=== PATIENT | male | born 1960 | race Hispanic/Latino ===

== ENCOUNTER 2018-02-07 06:15 | Day surgery (SDC) | payer OTHER ==
[2018-02-04 11:50] VITALS: BP 123/79
[2018-02-04 12:04] LABS: BASOPHILS % (AUTO) 0.7 % (0.0-5.0); EOSINOPHILS % (AUTO) 1.6 % (0.0-8.0); HEMATOCRIT 48.8 % (42-54); LYMPHOCYTES % (AUTO) 25.7 % (21.0-51.0); MEAN CORPUSCULAR HEMOGLOBIN 29.4 pg (27.0-33.0); MEAN CORPUSCULAR HGB CONC 33.5 g/dL (32.0-36.0); MEAN CORPUSCULAR VOLUME 87.9 fL (79-99); MONOCYTES % (AUTO) 7.6 % (3.0-13.0); NEUTROPHILS % (AUTO) 64.4 % (40.0-77.0); PLATELET COUNT (AUTO) 191 K/uL (130-400); RED BLOOD CELL COUNT(AUTO) 5.56 MIL/uL (4.50-6.20); RED CELL DISTRIBUTION WIDTH 14.6 % (11.0-15.5); WHITE BLOOD COUNT (AUTO) 8.8 K/uL (4.8-10.8)
[2018-02-04 12:14] LABS: INR 1.15 (0.85-1.15)
[2018-02-04 12:21] LABS: ALBUMIN 3.4 g/dL (3.5-5.0); CREATININE 1.1 mg/dL (0.5-1.5); POTASSIUM 4.2 mmol/L (3.5-5.1); TOTAL PROTEIN, SERUM 6.2 g/dL (6.0-8.3)
[~2018-02-07] VITALS: Ht 161.3 cm; Wt 121.0 kg
[2018-02-07] VITALS (16 sets, daily range): BP systolic 92–129; BP diastolic 58–79
[~2018-02-07 06:15] MED LIST: ASPI-1181 PO; CEFAZOLIN SODIUM 1 GM VIAL IVP SCH; DOCU100C33 PO; METH500T6 PO; PANT40TA25 PO
[2018-02-07] MEDS ORDERED: LACTATED RINGERS 1000ML 1,000 ML IV ONE (06:43)
[2018-02-07] MEDS: CEFAZOLIN SODIUM 1 GM VIAL ONE ×2 (07:11→10:42)
[2018-02-07] MEDS ORDERED: LIDOCAINE PF 2% 5ML ABBOJECT ONE (10:24)
[2018-02-07] MEDS ORDERED: PROPOFOL 10 MG/ML 20ML VIAL IV ONE (10:24)
[2018-02-07] MEDS ORDERED: SUCCINYLCHOLINE CHLORIDE 20 MG/ML 10 ML VIAL ONE (10:24)
[2018-02-07] MEDS ORDERED: ROCURONIUM BROMIDE 10MG/1ML 5ML VL ONE (10:24)
[2018-02-07] MEDS ORDERED: MIDAZOLAM HCL 1 MG/ML 2ML VIAL ONE (10:25)
[2018-02-07] MEDS ORDERED: FENTANYL CITRATE PF 50 MCG/1 ML 2ML VIAL ONE ×2 (10:25→10:55)
[2018-02-07] MEDS ORDERED: BUPIVACAINE/PF 0.25% 30ML VIAL IJ ONE (10:28)
[2018-02-07] MEDS ORDERED: NEOMY SULF/POLYMYXIN B SULFATE 1 ML AMPUL IR ONE (10:29)
[2018-02-07] MEDS ORDERED: BACITRACIN 28.4 GM OINT TP ONE (11:03)
[2018-02-07] MEDS ORDERED: MEPERIDINE-PF 25 MG/ML SYG ONE (11:42)
== END 2018-02-07 13:50 | disposition home or self-care (01) ==
LOC: DAH 06:15
PROVIDERS: ATTEND Urology
DX: L72.8 Other follicular cysts of the skin and subcutaneous tissue (principal); N44.2 Benign cyst of testis; E78.5 Hyperlipidemia, unspecified; E66.9 Obesity, unspecified; Z98.890 Other specified postprocedural states; Z98.84 Bariatric surgery status; K21.9 Gastro-esophageal reflux disease without esophagitis; I10 Essential (primary) hypertension; Z79.899 Other long term (current) drug therapy; R00.1 Bradycardia, unspecified
CPT/HCPCS: 36415; 54512; 80053; 85025; 85610; 88305; 93005; A4218; A4452; A4600; A4606; A4930; J0330; J0690; J2001; J2175; J2250; J2704; J3010 ×2; J3490 ×2; J7120

== ENCOUNTER → 2019-01-24 | Outpatient (CLI) | payer OTHER ==
[~2019-01-24] MED LIST changes: -CEFAZOLIN SODIUM 1 GM VIAL IVP SCH
== END | disposition home or self-care (01) ==
LOC: RAH 07:42
PROVIDERS: ATTEND Internal Medicine Gastroenterology
DX: K80.20 Calculus of gallbladder without cholecystitis without obstruction (principal); K76.0 Fatty (change of) liver, not elsewhere classified
CPT/HCPCS: 76700

== ENCOUNTER → 2019-02-14 | Outpatient (CLI) | payer OTHER | END | disposition home or self-care (01) | LOC: RAH 09:15 | PROVIDERS: ATTEND Internal Medicine | DX: K76.0 Fatty (change of) liver, not elsewhere classified (principal); N40.0 Benign prostatic hyperplasia without lower urinary tract symptoms | CPT/HCPCS: 76700; 76857 ==

== ENCOUNTER → 2019-03-13 | Outpatient (CLI) | payer OTHER | END | disposition home or self-care (01) | LOC: RAH 10:40 | PROVIDERS: ATTEND Internal Medicine Gastroenterology | DX: K29.00 Acute gastritis without bleeding (principal) | CPT/HCPCS: 78264; A9541 ==

== ENCOUNTER → 2020-08-13 | Outpatient (CLI) | payer OTHER ==
[~2020-08-13] MED LIST changes: -ASPI-1181 PO; +ASPI-1443 PO; -PANT40TA25 PO; +PANT40TA54 PO
[2020-08-13 15:32] LABS: CREATININE 1.1 mg/dL (0.5-1.5)
== END | disposition home or self-care (01) ==
LOC: LAB 14:13
PROVIDERS: ATTEND Plastic Surgery
DX: M79.3 Panniculitis, unspecified (principal)
CPT/HCPCS: 36415; 82565; 84520

== ENCOUNTER → 2020-08-17 | Outpatient (CLI) | payer OTHER ==
[~2020-08-17] MED LIST changes: +IOHEXOL-350 75 ML VIAL IV ONE
== END | disposition home or self-care (01) ==
LOC: RAH 08:31
PROVIDERS: ATTEND Plastic Surgery
DX: K44.9 Diaphragmatic hernia without obstruction or gangrene (principal); K42.9 Umbilical hernia without obstruction or gangrene; M47.817 Spondylosis without myelopathy or radiculopathy, lumbosacral region; K43.9 Ventral hernia without obstruction or gangrene
CPT/HCPCS: 74178; Q9967

== ENCOUNTER → 2022-07-11 | Outpatient (CLI) | payer OTHER ==
[~2022-07-11] MED LIST changes: -IOHEXOL-350 75 ML VIAL IV ONE; +METH-811 PO; -METH500T6 PO
== END | disposition home or self-care (01) ==
LOC: RAH 12:26
PROVIDERS: ATTEND Student in an Organized Health Care Education/Training Program
DX: M71.21 Synovial cyst of popliteal space [Baker], right knee (principal); I73.9 Peripheral vascular disease, unspecified; M71.22 Synovial cyst of popliteal space [Baker], left knee
CPT/HCPCS: 93925; 93970

== ENCOUNTER 2024-10-22 07:40 | Day surgery (SDC) | payer OTHER ==
[2024-10-22] VITALS (10 sets, daily range): BP systolic 108–135; BP diastolic 74–83; PULSE 60–85; RESP 14–20; TEMP 97.2–99.3
[~2024-10-22] VITALS: Ht 162.6 cm; Wt 135.2 kg
[~2024-10-22 07:40] MED LIST changes: +ACETAMINOPHEN; -DOCU100C33 PO; +IBUP-2077 PO; -METH-811 PO; +TYLENOL ARTHRITIS PO
[2024-10-22] MEDS: 0.9%NACL 1000ML 1,000 ML IV ONE (10:54)
[2024-10-22] MEDS ORDERED: LIDOCAINE HCL 400MG/20ML VIAL ONE (11:40)
[2024-10-22] MEDS ORDERED: proPOFol 10 MG/ML 20ML VIAL IV ONE (11:40)
== END 2024-10-22 13:05 | disposition home or self-care (01) ==
LOC: DAH 07:40 → ENDO 07:40
PROVIDERS: ATTEND Internal Medicine Gastroenterology
DX: K22.70 Barrett's esophagus without dysplasia (principal); K29.50 Unspecified chronic gastritis without bleeding; K21.00 Gastro-esophageal reflux disease with esophagitis, without bleeding; K44.9 Diaphragmatic hernia without obstruction or gangrene; F41.9 Anxiety disorder, unspecified; E66.01 Morbid (severe) obesity due to excess calories; K57.30 Diverticulosis of large intestine without perforation or abscess without bleeding; K64.0 First degree hemorrhoids; K76.0 Fatty (change of) liver, not elsewhere classified; I12.9 Hypertensive chronic kidney disease with stage 1 through stage 4 chronic kidney disease, or unspecified chronic kidney disease; N18.9 Chronic kidney disease, unspecified; G47.33 Obstructive sleep apnea (adult) (pediatric); Z86.0100 Personal history of colon polyps, unspecified; Z98.84 Bariatric surgery status; Z98.890 Other specified postprocedural states; Z79.82 Long term (current) use of aspirin; Z79.899 Other long term (current) drug therapy
CPT/HCPCS: 43239; J3490; J7030; J2704; A4620; A4215 ×2; A4223; A4222; A4221; A4663; A4606

== ENCOUNTER 2024-12-23 06:29 | Observation (INO) | payer OTHER ==
[2024-12-18 13:08] VITALS: BP 156/88; PULSE 69; RESP 18; TEMP 98.2
[2024-12-18 13:08] LABS: BASOPHILS # (AUTO) 0.04 K/uL (0.00-0.20); BASOPHILS % (AUTO) 0.5 % (0.0-5.0); EOSINOPHILS # (AUTO) 0.12 K/uL (0.00-0.70); EOSINOPHILS % (AUTO) 1.5 % (0.0-8.0); HEMATOCRIT 48.5 % (42-54); IMMATURE GRANULOCYTE ABSOLUTE 0.03 K/uL (0-1); LYMPHOCYTES # (AUTO) 2.4 K/uL (1.0-4.8); LYMPHOCYTES % (AUTO) 29.9 % (21.0-51.0); MEAN CORPUSCULAR HEMOGLOBIN 29.5 pg (27.0-33.0); MEAN CORPUSCULAR HGB CONC 32.6 g/dL (32.0-36.0); MEAN CORPUSCULAR VOLUME 90.7 fL (79-99); MONOCYTES # (AUTO) 0.8 K/uL (0.1-1.0); MONOCYTES % (AUTO) 9.2 % (3.0-13.0); NEUTROPHILS # (AUTO) 4.8 K/uL (1.8-7.7); NEUTROPHILS % (AUTO) 58.5 % (40.0-77.0); PLATELET COUNT (AUTO) 210 K/uL (130-400); RED BLOOD CELL COUNT(AUTO) 5.35 MIL/uL (4.50-6.20); RED CELL DISTRIBUTION WIDTH 13.7 % (11.0-15.5); WHITE BLOOD COUNT (AUTO) 8.2 K/uL (4.8-10.8)
[2024-12-18 13:16] LABS: APPEARANCE,URINE CLEAR (CLEAR); BILIRUBIN,URINE NEGATIVE (NEGATIVE); COLOR,URINE YELLOW (YELLOW); GLUCOSE, URINE (UA) NEGATIVE (NEGATIVE); KETONES,URINE NEGATIVE (NEGATIVE); LEUKOCYTE ESTERASE ,URINE NEGATIVE Leu/uL (NEGATIVE); NITRATE,URINE NEGATIVE (NEGATIVE); OCCULT BLOOD,URINE NEGATIVE (NEGATIVE); PH,URINE 5.5 (5.0-8.0); PROTEIN,URINE NEGATIVE (NEGATIVE)
[2024-12-18 13:21] LABS: CREATININE 1.2 mg/dL (0.5-1.3); POTASSIUM 4.3 mmol/L (3.5-5.1)
[2024-12-18 13:25] LABS: ADD UA MICROSCOPIC NO; INR 1.24 (0.85-1.15); PROTHROMBIN TIME 12.9 SEC (9.6-11.6)
[2024-12-18 13:26] LABS: PARTIAL THROMBOPLASTIN TIME 27.3 SEC (26.3-35.5)
--- NOTE | 2024-12-18 13:35 | NUR ---
RE: IS INITIAL IS INITIAL TEACHING COMPLETED BY RT SKYE DURING PREOP
[2024-12-23] VITALS (26 sets, daily range): BP systolic 110–154; BP diastolic 65–89; PULSE 65–89; RESP 14–18; TEMP 97.5–98.6; O2SAT 97–98
[~2024-12-23] VITALS: Ht 162.6 cm; Wt 129.7 kg
[~2024-12-23 06:29] MED LIST changes: -ACETAMINOPHEN; +ATOR40TA69 PO; -IBUP-2077 PO; +LOSA25TA41 PO; +MILK175T2 PO; -TYLENOL ARTHRITIS PO
[2024-12-23] MEDS: LACTATED RINGERS 1000ML 1,000 ML IV ONE (07:21)
[2024-12-23] MEDS: ceFAZolin SODIUM 1 GM VIAL ONE ×2 (07:22→13:01)
[2024-12-23] MEDS: ceFAZolin SODIUM 2 GM VIAL ONE (07:22)
[2024-12-23] MEDS ORDERED: SUCCINYLCHOLINE CHLORIDE 20 MG/ML 10 ML VIAL ONE (10:40)
[2024-12-23] MEDS ORDERED: dexaMETHasone SOD PHOSPHATE 10MG/ML 1ML VIAL ONE (10:40)
[2024-12-23] MEDS ORDERED: LIDOCAINE PF 100MG/5ML (2%) SYRINGE 5ML ONE (10:40)
[2024-12-23] MEDS ORDERED: ondanSETRON 4MG INJ ONE (10:41)
[2024-12-23] MEDS ORDERED: rocuRONium bROMide 10MG/1ML 5ML VL ONE ×2 (10:41→12:12)
[2024-12-23] MEDS ORDERED: MIDAZOLAM HCL 1 MG/ML 2ML VIAL ONE (10:41)
[2024-12-23] MEDS ORDERED: FENTanyl CITRate PF 50 MCG/1 ML 2ML VIAL ONE (10:41)
[2024-12-23] MEDS ORDERED: proPOFol 10 MG/ML 20ML VIAL IV ONE (10:41)
[2024-12-23] MEDS ORDERED: ROPivacaine 0.5% 5MG/ML 30ML ONE (10:50)
[2024-12-23] MEDS ORDERED: TRANEXAMIC ACID 1000MG/10ML ONE (11:37)
[2024-12-23] MEDS ORDERED: phenylEPHRINE HCL 10 MG/ML 1ML VIAL IV ONE (11:55)
[2024-12-23] MEDS ORDERED: GLYCOPYRROLATE 0.2 MG/ML 5 ML VIAL ONE (12:05)
[2024-12-23] MEDS: VANCOMYCIN 500MG+NS 100ML 100 ML IV ONE (13:02)
--- NOTE | 2024-12-23 13:44 | OP ---
Operative Note: DATE OF PROCEDURE: 12/23/24 SURGEON: FRANCIE BAILON MD NETWORKING TECHNOLOGY INSTRUCTOR: [Lisa Crowe CFA] ANESTHESIA: [General anesthesia plus regional block] ANESTHESIOLOGIST/ROVING SIZER: [Tom Corea CRNA] PREOPERATIVE DIAGNOSIS: [Left knee osteoarthritis] POSTOPERATIVE DIAGNOSIS: [Left knee osteoarthritis] IMPLANTS: [Biomet vanguard. Femur size 65 left PS. Tibia size 71 fixed cruciate. Patella size 34 x 9, asymmetric. Tibial liner size 12 x 70 1/75 PS] PROCEDURE: [Left total knee arthroplasty] ESTIMATED BLOOD LOSS: [250 mL] INDICATIONS: [64-year-old male with history of pain to the left knee secondary to osteoarthritis that has no longer responded to conservative treatment the patient has severe damage to the joint and he has been admitted for a left total knee arthroplasty. Procedure understood, risks, benefits and possible complications and agreed to sign the consent form.] DESCRIPTION OF PROCEDURE: [After adequate general anesthesia was achieved and regional block obtained the left lower extremity was prepped and draped in the usual manner previous placement of the tourniquet in the proximal thigh. The extremity was then elevated and exsanguinated with an Esmarch bandage and the tourniquet inflated to 300 mmHg the Esmarch band been then removed. With the knee in flexion a longitudinal incision was then made in the anterior aspect through the skin followed by dissection of the subcutaneous tissue. A bone infusion needle was then inserted just medial to the tibial tuberosity into the metaphysis. A solution of 500 mg of vancomycin mixed with 50 mL of normal saline solution were then injected through this needle into the metaphysis. The needle was then removed and a paramedian approach was then made with the Bovie cautery cutting through the quadriceps tendon, medial patellar retinaculum and patellar tendon retinaculum. The retropatellar tendon fat was then excised and the soft tissue elements of the tibia were elevated subperiosteally and retractors were applied medially and laterally . The anterior and posterior cruciate ligaments were resected. With the use of a drill a starting hole was made in the distal femur entering the intramedullary canal and then after removal of the drill an intramedullary guide was inserted with a 5 degree valgus block that touched the distal femur and to this the distal femoral cutting guide was then applied anteriorly and was secured to the distal femur with the use of pins. The intramedullary guide was then removed and with the use of the oscillating saw we proceeded to resect the distal femur removing the fragments and the guide. The femoral sizer was then applied distally and drill holes were made removing the sizer and the 4-in-1 cutting block was then inserted and the anterior, posterior and chamfer cuts were made removing the fragments and the block. The posterior cruciate ligament retractor was then inserted posterior to the tibia and this was brought forward proceeding then to apply the external tibial alignment guide and secured the proximal cutting guide to the tibia with the use of pins. With the use of the oscillating saw the proximal cut to the tibia tibia was made. The bone fragment was removed and the trial tibia plate was chosen. At this point the menisci were removed sharply and with the use of the curved osteotome the posterior osteophytes of the femur were removed. The PS cutting guide was then inserted and the intercondylar cut was made removing the fragment and the guide. The trial components were then inserted at the femur and tibia with a trial tibial liner bringing the knee into extension noticing that the patient had a very stable knee in flexion, extension and with valgus and varus stress. The knee was maintained in extension and the patella was then addressed proceeding to measure its thickness and then with the use of the oscillating saw we removed 9 mm from the articular surface and restored the height with application of a trial component after 3 peg holes were made. The patellofemoral ligament was removed and then the patellofemoral tracking was checked noticing to be normal. At this moment all the components were removed, the tibia after the metaphyseal defect was created and while cement was being mixed on the back table we proceeded to irrigate the joint with antibiotic solution and then cover the entry to the femoral canal with a bone plug. Once the cement was ready we proceeded to apply it first to the tibia surface inserting the final component and then to the femoral surface and inserted the final component removing the excess cement and then applying a trial liner bringing the knee into extension for compression. Then we proceeded to irrigate the patella surface and dried it applying then bone cement and the final patellar component was inserted and was secured with application of a clamp. The joint was irrigated with a warm diluted Betadine solution while the cement dried followed by irrigation with antibiotic solution. The trial liner was removed as well as the patellar clamp and we proceeded then to irrigate the posterior aspect of the joint to remove all the remaining debris and the final tibial liner was inserted and locked against the tibia . The range of motion was checked and noticed to be adequate with full extension and flexion, no laxity in valgus or varus stress and with adequate patellofemoral tracking. The patient had no anterior or posterior drawer. After further irrigation the tourniquet was deflated and hemostasis was obtained with the cautery. At this time the wound was then closed with approximation of the quadriceps tendon, patellar retinaculum and patellar tendon retinaculum with #1 Vicryl close stitches alternating with #1 Ethibond stitches, this was followed by closure of the subcutaneous tissue with 2-0 Monocryl inverted stitches and the skin was closed with 3-0 Monocryl subcuticularly. The wound was covered with a suction dressing followed by application of an Harman bandage for compression and the drapes were then removed transferring the patient to the hospital bed and taken to recovery room for follow-up by anesthesia. There were no complications during the procedure.] FRANCIE BAILON MD Dec 23, 2024 13:44
[2024-12-23] MEDS ORDERED: FERROUS FUMARATE 324 MG TABLET PO PRN (14:00)
[2024-12-23] MEDS ORDERED: PoTASSium chl 10% ELIXIR 20MEQ 20 MEQ/15 ML UDCUP PO PRN (14:00)
[2024-12-23] MEDS ORDERED: CALCIUM CARB 500MG PO PRN (14:00)
[2024-12-23] MEDS ORDERED: DiphenhydrAMINE HCL 50 MG/ML VIAL IVP PRN (14:00)
[2024-12-23] MEDS ORDERED: PoTASSium chloRIDE 20MEQ/100ML 100 ML IV PRN (14:00)
[2024-12-23] MEDS ORDERED: ondanSETRON 4MG INJ IVP PRN (14:00)
[2024-12-23] MEDS ORDERED: PoTASSium chloRIDE 20MEQ ER 20 MEQ ERTAB PO PRN (14:00)
[2024-12-23] MEDS: TRANEXAMIC ACID 1000MG/10ML ONE (14:55)
[2024-12-23] MEDS: FENTanyl CITRate PF 50 MCG/1 ML 2ML VIAL ONE (14:55)
--- NOTE | 2024-12-23 15:30 | NUR ---
RECEIVED REPORT FROM KEIRA CHAPA. PATIENT ARRIVED TO UNIT NO SIGNS OF SYMPTOMS OF DISTRESS NOTED. PATIENT STATES HE HAVING PAIN AT THIS TIME. PATIENT IS RESTING COMFORTABLY WITH FAMILY PRESENT IN THE ROOM. POST OP VITALS STARTED.
[2024-12-23] MEDS: ketOROlac 15MG/ML VIAL (15MG/ML) IV PRN (15:49)
[2024-12-23] MEDS: CeleCOXib 200 MG CAP PO SCH (20:10)
[2024-12-23] MEDS: ceFAZolin SODIUM 2 GM VIAL IVP SCH (20:11)
[2024-12-23] MEDS: acetaMINOPHEN 500 MG TABLET PO SCH (22:00)
[2024-12-24] MEDS: 0.9%NACL 1000ML 1,000 ML IV SCH (02:15)
[2024-12-24 04:00] VITALS: BP 108/51; PULSE 67; RESP 18; TEMP 98.6
[2024-12-24 04:40] LABS: MEAN CORPUSCULAR HEMOGLOBIN 29.5 pg (27.0-33.0); MEAN CORPUSCULAR HGB CONC 31.9 g/dL (32.0-36.0); MEAN CORPUSCULAR VOLUME 92.5 fL (79-99); RED BLOOD CELL COUNT(AUTO) 4.54 MIL/uL (4.50-6.20); RED CELL DISTRIBUTION WIDTH 13.8 % (11.0-15.5); WHITE BLOOD COUNT (AUTO) 10.4 K/uL (4.8-10.8)
[2024-12-24 04:51] LABS: POTASSIUM 3.8 mmol/L (3.5-5.1)
--- NOTE | 2024-12-24 06:25 | NUR ---
PT ASSISTED TO BEDSIDE CHAIR WITH USE OF WALKER. EDNA DRESSING REMOVED, INCISION CLEAN/DRY WITH MYCHAL DRESSING. PT VOICING DISCOMFORT OXYCODONE 5 MG PO PRN GIVEN AT THIS TIME. ENCOURAGED TO USE CALL LIGHT FOR ASSISTANCE, CALL PALMER WITHIN REACH.
[2024-12-24] MEDS: OXYcodONE HCL 5 MG TAB PO PRN (06:31)
[2024-12-24 08:04] VITALS: BP 128/77; PULSE 57; RESP 18; TEMP 98.2
[2024-12-24] MEDS: atorVAStatin 40 MG TABLET PO SCH (09:05)
[2024-12-24] MEDS: ASPIRIN 81 MG EC TAB PO SCH (09:05)
[2024-12-24] MEDS: LoSARTan 25 MG TABLET PO SCH (09:05)
[2024-12-24] MEDS: PANTOPrazole 40 MG TAB DR PO SCH (09:06)
[2024-12-24] MEDS: tamSULOsin HCL 0.4 MG CAP.ER.24H PO SCH (09:06)
[2024-12-24] MEDS: polyETHYLene GLYCol 3350 17 GM POWD.PACK PO SCH (09:06)
[2024-12-24] MEDS: APIXaban 2.5 MG TABLET PO SCH (09:06)
--- NOTE | 2024-12-24 10:42 | PN ---
Ortho postop day one. (Patient seen at 7:45 a.m. this morning) . Patient is awake alert and oriented seated at the bedside resting comfortably with his operative extremity resting on a footstool. He has been alternating extension and flexion. The Harman bandage his already been removed and the picco dressing is intact flushing green. The gastrocnemius a soft nontender. Negative Homans. Vital signs have remained stable. Afebrile. Laboratory results reviewed. Noted to have a slight drop in hematocrit but hemoglobin is within normal limits. Voiding on his own. Operative findings discussed with the patient. And forced incentive spirometry. Ice is present to the operative site. He ambulated yesterday within the confines of his room and is pending further physical therapy this morning. We discussed discharge disposition and patient would like to be considered for skilled nurse facility. We will defer this to case management. Assessment: Status post left total knee arthroplasty. Plan: Continue with Dr. Lezama TKA protocol and discharge planning Vitals/Labs Vital Signs Date Time Temp Pulse Resp B/P (MAP) Pulse Ox O2 Delivery O2 Flow Rate FiO2 12/24/24 08:04 98.2 57 18 128/77 94 Room Air 12/24/24 04:00 2.0 24 Laboratory Tests 12/24/24 04:19 Medications Current Medications Cefazolin Sodium 1 gm STK-MED ONCE .ROUTE Last administered on 12/23/24at 11:45; Start 12/23/24 at 06:58; Stop 12/23/24 at 06:59; Status DC Cefazolin Sodium 2 gm STK-MED ONCE .ROUTE Last administered on 12/23/24 11:45; Start 12/23/24 at 06:59; Stop 12/23/24 at 06:59; Status DC Lactated Ringer's 1,000 ml @ As Directed STK-MED ONCE IV Last administered on 12/23/24 07:21; Start 12/23/24 at 06:59; Stop 12/23/24 at 06:59; Status DC Cefazolin Sodium 1 gm STK-MED ONCE .ROUTE Last administered on 12/23/24 13:01; Start 12/23/24 at 07:17; Stop 12/23/24 at 07:18; Status DC Vancomycin HCl 100 ml @ As Directed STK-MED ONCE IV Last administered on 4/29/25at 13:02; Start 12/23/24 at 07:18; Stop 12/23/24 at 07:18; Status DC Lidocaine HCl 100 mg STK-MED ONCE .ROUTE; Start 12/23/24 at 10:40; Stop 12/23/24 at 10:40; Status DC Succinylcholine Chloride 200 mg STK-MED ONCE .ROUTE; Start 12/23/24 at 10:40; Stop 12/23/24 at 10:41; Status DC Dexamethasone Sodium Phosphate 10 mg STK-MED ONCE .ROUTE; Start 12/23/24 at 10:40; Stop 12/23/24 at 10:41; Status DC Midazolam HCl 2 mg STK-MED ONCE .ROUTE; Start 12/23/24 at 10:41; Stop 12/23/24 at 10:41; Status DC Propofol 200 mg STK-MED ONCE IV; Start 12/23/24 at 10:41; Stop 12/23/24 at 10:41; Status DC Ondansetron HCl 4 mg STK-MED ONCE .ROUTE; Start 12/23/24 at 10:41; Stop 12/23/24 at 10:41; Status DC Rocuronium [place] 50 mg STK-MED ONCE .ROUTE; Start 12/23/24 at 10:41; Stop 12/23/24 at 10:41; Status DC Fentanyl Citrate 100 mcg STK-MED ONCE .ROUTE; Start 12/23/24 at 10:41; Stop 12/23/24 at 10:41; Status DC Ropivacaine 150 mg STK-MED ONCE .ROUTE; Start 12/23/24 at 10:50; Stop 12/23/24 at 10:50; Status DC Tranexamic Acid 1,000 mg STK-MED ONCE .ROUTE; Start 12/23/24 at 10:50; Stop 12/23/24 at 10:50; Status DC Tranexamic Acid 1,000 mg STK-MED ONCE .ROUTE; Start 12/23/24 at 11:37; Stop 12/23/24 at 11:38; Status DC Phenylephrine HCl 10 mg STK-MED ONCE IV; Start 12/23/24 at 11:55; Stop 12/23/24 at 11:55; Status DC Glycopyrrolate 1 mg STK-MED ONCE .ROUTE; Start 12/23/24 at 12:05; Stop 12/23/24 at 12:05; Status DC Rocuronium [place] 50 mg STK-MED ONCE .ROUTE; Start 12/23/24 at 12:12; Stop 12/23/24 at 12:13; Status DC Sodium Chloride 1,000 ml @ 100 mls/hr Q10H IV Last administered on 12/24/24at 02:15; Start 12/23/24 at 14:00; Stop 12/24/24 at 13:59 Polyethylene Glycol 17 gm DAILY PO Last administered on 12/24/24at 09:06; Start 12/24/24 at 09:00; Stop 01/23/25 at 08:59 Bisacodyl 10 mg DAILY PRN RC; Start 12/26/24 at 14:00; Stop 01/25/25 at 13:59 Ketorolac Tromethamine 15 mg Q6H PRN IV Last administered on 12/24/24at 09:21; Start 12/23/24 at 14:00; Stop 12/28/24 at 13:59 Tamsulosin HCl 0.4 mg DAILY PO Last administered on 12/24/24at 09:06; Start 12/24/24 at 09:00; Stop 01/23/25 at 08:59 Ferrous Fumarate 324 mg DAILY PRN PO; Start 12/23/24 at 14:00; Stop 01/22/25 at 13:59 Temazepam 15 mg HS PRN PO; Start 12/23/24 at 14:00; Stop 01/22/25 at 13:59 Ondansetron HCl 4 mg Q6H PRN IVP; Start 12/23/24 at 14:00; Stop 01/22/25 at 13:59 Calcium Carbonate 500 mg Q12H PRN PO; Start 12/23/24 at 14:00; Stop 01/22/25 at 13:59 Diphenhydramine HCl 25 mg Q6H PRN IVP; Start 12/23/24 at 14:00; Stop 01/22/25 at 13:59 Cefazolin Sodium 2 gm Q8H IVP Last administered on 12/24/24at 02:12; Start 12/23/24 at 19:00; Stop 12/24/24 at 03:01; Status DC Potassium Chloride 100 ml @ 100 mls/hr AD PRN IV; Start 12/23/24 at 14:00; Stop 01/22/25 at 13:59 Potassium Chloride 20 meq AD PRN PO; Start 12/23/24 at 14:00; Stop 01/22/25 at 13:59 Potassium Chloride 20 meq AD PRN PO; Start 12/23/24 at 14:00; Stop 01/22/25 at 13:59 Celecoxib 200 mg BID PO Last administered on 12/24/24at 09:05; Start 12/23/24 at 21:00; Stop 01/22/25 at 20:59 Oxycodone HCl 5 mg Q4H PRN PO Last administered on 12/24/24at 06:31; Start 12/23/24 at 14:00; Stop 12/30/24 at 13:59 Oxycodone HCl 10 mg Q4H PRN PO; Start 12/23/24 at 14:00; Stop 12/30/24 at 13:59 Tramadol HCl 50 mg Q6H PRN PO; Start 12/23/24 at 14:00; Stop 12/28/24 at 13:59 Acetaminophen 1,000 mg Q8H PO Last administered on 12/24/24at 06:17; Start 12/23/24 at 14:00; Stop 01/22/25 at 13:59 Apixaban 2.5 mg BID PO Last administered on 12/24/24at 09:06; Start 12/24/24 at 09:00; Stop 01/23/25 at 08:59 Fentanyl Citrate 100 mcg STK-MED ONCE .ROUTE Last administered on 12/23/24at 14:55; Start 12/23/24 at 14:48; Stop 12/23/24 at 14:49; Status DC Tranexamic Acid 1,000 mg STK-MED ONCE .ROUTE Last administered on 12/23/24at 14:55; Start 12/23/24 at 14:49; Stop 12/23/24 at 14:49; Status DC Aspirin 81 mg AM PO Last administered on 12/24/24at 09:05; Start 12/24/24 at 09:00; Stop 01/23/25 at 08:59 Atorvastatin Calcium 40 mg DAILY PO Last administered on 12/24/24at 09:05; Start 12/24/24 at 09:00; Stop 01/23/25 at 08:59 Losartan Potassium 25 mg DAILY PO Last administered on 12/24/24at 09:05; Start 12/24/24 at 09:00; Stop 01/23/25 at 08:59 Pantoprazole Sodium 40 mg AM PO Last administered on 12/24/24at 09:06; Start 12/24/24 at 09:00; Stop 01/23/25 at 08:59 Home Med DAILY PO; Start 12/24/24 at 09:00; Stop 01/23/25 at 08:59 JEFF GARZA NP Dec 24, 2024 10:42
--- NOTE | 2024-12-24 11:30 | NUR ---
RAMIN CM met with pt this morning, initial assessment done. Patient is independent prior to surgery, lives at home with his . Patient has a cane. Denies any other equipment/services. Feels safe to go back home, still drive, spouse able to assist with transportation and needs as necessary. Discussed MD recommendations for rehab at SNF, pt agreeable, given in network SNF facilities, consent LADI signed for [facility]. RAMIN Vásquez once approved. CM to continue to follow up.
[2024-12-24 11:54] VITALS: BP 118/64; PULSE 66; RESP 17; TEMP 97.9
[2024-12-24 16:00] VITALS: BP 101/55; PULSE 58; RESP 18; TEMP 97.8
--- NOTE | 2024-12-24 18:30 | NUR ---
ORTHO COORDINATOR: TEACHING REGARDING DVT AND PNEUMONIA PREVENTION, PAIN EXPECTATIONS AND PAIN MANAGEMENT. PATIENT IN BED, SPOUSE AT BEDSIDE. INCENTIVE SPIROMETER AT BEDSIDE. PATIENT REPORTS USING ONCE TODAY. RE-EDUCATED. PROPER FREQUENCY COMMUNICATED. PATIENT INSTRUCTED TO PERFORM DURING COMMERCIALS WHILE WATCHING TELEVISION. B SCD SLEEVES IN PLACE AND FUNCTIONING. PAIN CONTROLLED. REVIEWED NUMERIC PAIN SCALE. PATIENT ENCOURAGED TO SELF ASSESS PAIN EVERY 4 HOURS, TO ASSIGN A NUMERIC VALUE AND TYPE OF PAIN AND COMMUNICATE WITH PRIMARY NURSE. PATIENT AND VERBALIZED UNDERSTANDING. NO ADDITIONAL QUESTIONS/CONCERNS AT THIS TIME.
[2024-12-24 20:08] VITALS: BP 100/58; PULSE 67; RESP 18; TEMP 98.2
[2024-12-24] MEDS: TEMAZepam 15 MG CAPSULE PO PRN (21:11)
[2024-12-24 23:36] VITALS: BP 106/59; PULSE 69; RESP 20; TEMP 98.3
[2024-12-25] MEDS: OXYcodONE HCL 5 MG TAB PO PRN (01:42)
[2024-12-25 08:00] VITALS: BP 112/73; PULSE 66; RESP 17; TEMP 97.8
[2024-12-25] MEDS: SUGAMMADEX SODIUM 200 MG/2 ML VIAL IV ONE (10:03)
[2024-12-25] MEDS: TRANEXAMIC ACID 1000MG/10ML ONE (10:04)
--- NOTE | 2024-12-25 11:04 | NUR ---
WO Auth Follow up This CM called [facility]: , opt# 2, #1, #1, #2 to follow up on authorization. Per rep, chart is currently in clinical review and patient should have a determination today.
[2024-12-25 12:00] VITALS: BP 118/60; PULSE 82; RESP 18; TEMP 98.6
[2024-12-25] MEDS ORDERED: APIX2.5T PO (15:51)
[2024-12-25] MEDS ORDERED: HYDR-4060 PO (15:51)
--- NOTE | 2024-12-25 15:57 | DS ---
DISCHARGE SUMMARY [ Date of admission: 12/23/2024 Date of discharge: 12/25/2024 Final diagnosis: Left Knee osteoarthritis Surgical procedures: Left total Knee arthroplasty on 12/23/2024 Summary of History and Physical: The patient is a year-old with history of severe arthrosis to the knee that has been present for several years and has been treated conservatively with no longer adequate response to treatment. The patient is being admitted for total knee arthroplasty. Previous medical history: Obesity, osteoarthritis, gallstones Previous surgical history: Neck surgery, back surgery, gastric sleeve, cholecystectomy Family history: History of cancer, hypertension, hyperlipidemia Social history: Negative for use of tobacco or alcohol. Allergies: NKDA. Review of system: Negative on admission Hospital course: The patient was admitted and taken to the operating room for a total knee arthroplasty, procedure that went uneventful. Postoperatively the patient remained hemodynamically stable and afebrile. The patient received antibiotic and anticoagulation prophylaxis as per protocol. The patient was evaluated by physical therapy and started rehabilitation treatment with ambulation with the use of walker, weightbearing as tolerated, range of motion exercises and bed transfers. The patient was also evaluated by case management and arrangements were made for discharge. The patient tolerated diet well. On postop day #2 all the arrangements were completed and the patient was dismissed. Condition on discharge: Good Disposition: The patient will be dismissed to a correction facility. Follow- up will be done at the office in 3 weeks. The patient is to continue with physical therapy and rehabilitation at facility and be ambulatory with the use of a walker, weightbearing as tolerated. Continue taking pain medication as instructed as well as anticoagulation prophylaxis. Continue with home medications also as instructed and continue with pre admission diet.] FRANCIE BAILON MD ] FRANCIE BAILON MD December 25, 2024 15:57
[2024-12-25] MEDS: traMADol HCL 50 MG TABLET PO PRN (16:49)
[2024-12-26] MEDS ORDERED: BisaCODYL 10 MG SUPP.RECT RC PRN (14:00)
== END 2024-12-25 18:00 ==
LOC: DAH 06:29 → DAHIP 06:30 → DAH 06:30 → 4AH 15:30
PROVIDERS: ADMIT Orthopaedic Surgery; ATTEND Orthopaedic Surgery
DX: M17.12 Unilateral primary osteoarthritis, left knee (principal); G89.18 Other acute postprocedural pain; E66.9 Obesity, unspecified; Z98.890 Other specified postprocedural states; Z79.899 Other long term (current) drug therapy; Z86.2 Personal history of diseases of the blood and blood-forming organs and certain disorders involving the immune mechanism; Z68.42 Body mass index [BMI] 45.0-49.9, adult; Z90.49 Acquired absence of other specified parts of digestive tract
CPT/HCPCS: 80048 ×2; 85025; 85610; 85730; 87086; 81003; 36415 ×2; 87641; 27447; 96376 ×3; 96365; 96375; 64447; 88311; 88305; 97161; 97116 ×5; 97530 ×7; 96366; 85027; G0378 ×47; A4663; J7120 ×2; J3010 ×2; J0690 ×5; J3490 ×6; J1100; J0330; J2003; J2250; J2704; J2405; J2795; J1885 ×5; J2371; J3370; A9272; A4649 ×3; A4930 ×2; C1713; C1776; A5120; A4215; A4223 ×2; A4222; A4221; A4216